=== PATIENT | female | born 1985 | race Two or more races ===

== ENCOUNTER 2016-11-01 19:11 | Emergency (ER) | payer SELFPAY ==
[~2016-11-01] VITALS: Ht 157.5 cm; Wt 49.9 kg
[~2016-11-01 19:11] MED LIST: CIPR500T94 PO; HYDR1TAB10 PO; ONDA4TAB10 SL; PANT40TA3 PO; PROM25TA10 PO
--- NOTE | 2016-11-01 19:27 | PHYS DOC ---
Past Medical History Past Medical History: Depression Past Surgical History: Cholecystectomy Alcohol Use: Sober Drug Use: Marijuana Adult General Chief Complaint Chief Complaint: COUGH HPI HPI Patient is a 31 year old female who presents with fever, body aches, chills, and a cough that began 3 days ago. Review of Systems Review of Systems Constitutional: Body aches and fever Eyes: Denies change in visual acuity, redness, or eye pain [] HENT: Denies nasal congestion or sore throat [] Respiratory: cough Cardiovascular: No additional information not addressed in HPI [] GI: Denies abdominal pain, nausea, vomiting, bloody stools or diarrhea [] : Denies dysuria or hematuria [] Musculoskeletal: Denies back pain or joint pain [] Integument: Denies rash or skin lesions [] Neurologic: Denies headache, focal weakness or sensory changes [] Endocrine: Denies polyuria or polydipsia [] Current Medications Current Medications Current Medications Medications (Trade) Dose Ordered Sig/Amriposa Start Time Stop Time Status Last Admin Dose Admin Acetaminophen (Tylenol) 1,000 mg 1X ONCE 11/01/16 19:45 11/01/16 19:46 DC 11/01/16 19:39 1,000 MG Ibuprofen 800 mg 800 mg 1X ONCE 11/01/16 19:45 11/01/16 19:46 DC 11/01/16 19:39 800 MG Sodium Chloride (Iv Sodium Chloride 0.9% 1000ml Bag) 1,000 ml @ 1,000 mls/hr 1X ONCE 11/01/16 21:00 11/01/16 21:59 DC 11/01/16 20:46 1,000 MLS/HR Allergies Allergies Allergies Coded Allergies Type Severity Reaction Last Updated Verified No Known Drug Allergies 02/26/16 No Physical Exam Physical Exam Constitutional: Well developed, well nourished, no acute distress, non-toxic appearance. [] HENT: Normocephalic, atraumatic, bilateral external ears normal, oropharynx moist, no oral exudates, nose normal. [] Eyes: PERRLA, EOMI, conjunctiva normal, no discharge. [] Neck: Normal range of motion, no tenderness, supple, no stridor. [] Cardiovascular:Heart rate regular rhythm, no murmur [] Lungs & Thorax: Bilateral breath sounds clear to auscultation [] Abdomen: Bowel sounds normal, soft, no tenderness, no masses, no pulsatile masses. [] Skin: Warm, dry, no erythema, no rash. [] Back: No tenderness, no CVA tenderness. [] Extremities: No tenderness, no cyanosis, no clubbing, ROM intact, no edema. [] Neurologic: Alert and oriented X 3, normal motor function, normal sensory function, no focal deficits noted. [] Psychologic: Affect normal, judgement normal, mood normal. [] Current Patient Data Vital Signs Vital Signs Date Time Temp Pulse Resp B/P Pulse Ox O2 Delivery O2 Flow Rate FiO2 11/01/16 22:19 99.5 105 16 95/50 99 Room Air 99.5 Lab Values Laboratory Tests Test 11/01/16 19:23 11/01/16 19:32 11/01/16 19:47 11/01/16 19:57 Influenza Type A Antigen Negative (NEGATIVE) Influenza Type B Antigen Positive (NEGATIVE) Urine Collection Type Unknown Urine Color Yellow Urine Clarity Clear Urine pH 5.5 Urine Specific [place] 1.015 Urine Protein Negativemg/dL (NEG-TRACE) Urine Glucose (UA) Negativemg/dL (NEG) Urine Ketones (Stick) >=80mg/dL (NEG) Urine Blood Moderate (NEG) Urine Nitrite Negative (NEG) Urine Bilirubin Negative (NEG) Urine Urobilinogen Dipstick 1.0mg/dL (0.2 mg/dL) Urine Leukocyte Esterase Negative (NEG) Urine RBC Rare/HPF (0-2) Urine WBC 11-20/HPF (0-4) Urine Squamous Epithelial Cells Mod/LPF Urine Amorphous Sediment /HPF Urine Bacteria Few/HPF (0-FEW) Urine Mucus Mod/LPF Urine Sperm Present/HPF White Blood Count 4.2x10^3/uL (4.0-11.0) Red Blood Count 4.11x10^6/uL (3.50-5.40) Hemoglobin 13.2g/dL (12.0-15.5) Hematocrit 39.0% (36.0-47.0) Mean Corpuscular Volume 95fL (79-100) Mean Corpuscular Hemoglobin 32pg (25-35) Mean Corpuscular Hemoglobin Concent 34g/dL (31-37) Red Cell Distribution Width 13.4% (11.5-14.5) Platelet Count 121x10^3/uL (140-400) L Neutrophils (%) (Auto) 91% (31-73) H Lymphocytes (%) (Auto) 7% (24-48) L Monocytes (%) (Auto) 1% (0-9) Eosinophils (%) (Auto) 0% (0-3) Basophils (%) (Auto) 0% (0-3) Neutrophils # (Auto) 3.8x10^3uL (1.8-7.7) Lymphocytes # (Auto) 0.3x10^3/uL (1.0-4.8) L Monocytes # (Auto) 0.0x10^3/uL (0.0-1.1) Eosinophils # (Auto) 0.0x10^3/uL (0.0-0.7) Basophils # (Auto) 0.0x10^3/uL (0.0-0.2) Segmented Neutrophils % 73% (35-66) H Band Neutrophils % 19% (0-9) H Lymphocytes % 8% (24-48) L Platelet Estimate Adequate (ADEQUATE) POC Urine HCG, Qualitative Hcg negative (Negative) Laboratory Tests 11/01/16 19:47 EKG EKG [] Radiology/Procedures Radiology/Procedures [] Course & Med Decision Making Course & Med Decision Making Pertinent Labs and Imaging studies reviewed. (See chart for details) Patient is in the ED with symptoms of viral illness including body aches fevers and chills. Temperature was 102.9 on arrival with a heart rate in the 140s. Patient was shivering. She was put in a room, she was given Tylenol and Motrin and a liter of IV started right away. Heart rate is 107 right now with temp of 99.5 Patient is positive for influenza B, negative for influenza A, symptoms have been going on for 3 days. Tamiflu has no benefit. Chest x-ray interpreted by Dr. Sanz is negative for any acute findings. Patient was discharged with instructions to push fluids, maintain good hand hygiene. Tylenol every 4 hours Motrin every 6 hours and follow-up with primary care doctor next week. She was provided return precautions and discharged in stable condition. Dragon Disclaimer Dragon Disclaimer This electronic medical record was generated, in whole or in part, using a voice recognition dictation system. Departure Departure Impression: Primary Impression: URI (upper respiratory infection) Additional Impressions: Influenza B Tachycardia Fever Cough Disposition: HOME, SELF-CARE Condition: STABLE Referrals: UNKNOWN PCP NAME (PCP) Follow-up with your doctor next week Patient Instructions: Cough, Adult, [id number], Fever, Upper Respiratory Infection, Adult Additional Instructions: You were seen for influenza B. He also have a fever and cough. Your symptoms are viral. Push fluids, maintain good hand hygiene, take Tylenol every 4 hours and Motrin every 6 hours. Follow-up with your doctor next week, come back to the ED for any worsening symptoms. Problem Qualifiers Primary Impression: URI (upper respiratory infection) URI type: unspecified viral URI Qualified Code: J06.9 - Acute upper respiratory infection, unspecified Additional Impressions: Fever Fever type: unspecified Qualified Code: R50.9 - Fever, unspecified ALEXA MARTINES APRN Nov 01, 2016 19:27
[2016-11-01] MEDS ORDERED: IV NORMAL SALINE 1000ML BAG 1,000 ML IV ONE ×2 (19:30→21:00)
[2016-11-01] MEDS ORDERED: ACETAMINOPHEN 500 MG TABLET PO ONE (19:45)
[2016-11-01] MEDS ORDERED: IBUPROFEN 800 MG TABLET. PO ONE (19:45)
[2016-11-01 19:55] LABS: OBC FLU VALID
[2016-11-01 20:08] LABS: BILIRUBIN,URINE NEGATIVE (NEG); GLUCOSE,URINE NEGATIVE (NEG); NITRITE,URINE NEGATIVE (NEG); PH,URINE 5.5; PROTEIN,URINE NEGATIVE (NEG-TRACE)
[2016-11-01 20:21] LABS: BACTERIA,URINE FEW /HPF (0-FEW); RBC,URINE RARE /HPF (0-2)
[2016-11-01 20:22] LABS: SPERM,URINE PRESENT /HPF; SQUAMOUS EPITHELIAL CELL,UR MOD /LPF
[2016-11-01 21:00] LABS: BASO % 0 % (0-3); EOS % 0 % (0-3); HEMOGLOBIN 13.2 g/dL (12.0-15.5); LYMPH # 0.3 x10^3/uL (1.0-4.8); LYMPH % 7 % (24-48); MEAN CORPUSCULAR HEMOGLOBIN 32 pg (25-35); MEAN CORPUSCULAR HGB CONC 34 g/dL (31-37); MEAN CORPUSCULAR VOLUME 95 fL (79-100); MONO % 1 % (0-9); NEUT % 91 % (31-73); PLATELET COUNT 121 x10^3/uL (140-400); RED BLOOD COUNT 4.11 x10^6/uL (3.50-5.40); RED CELL DISTRIBUTION WIDTH 13.4 % (11.5-14.5); WHITE BLOOD COUNT 4.2 x10^3/uL (4.0-11.0)
[2016-11-01 21:04] LABS: PLT ESTIMATE ADEQUATE (ADEQUATE)
[2016-11-01 22:19] VITALS: BP 95/50
--- NOTE | 2016-11-02 10:17 | RAD ---
EXAM: Chest 2 views. HISTORY: Chest pain, cough and fever. COMPARISON: None. FINDINGS: Frontal and lateral views of the chest are obtained. There are no confluent infiltrates. There is a calcified granuloma on the left. The right costophrenic angle is partially excluded, but there is no pneumothorax or pleural effusion. The heart is not enlarged. IMPRESSION: 1. No confluent infiltrates.
[2016-11-02 11:21] LABS: NEGATIVE OBC STREP NEG; POSITIVE OBC STREP POS
== END 2016-11-01 22:20 | disposition home or self-care (01) ==
LOC: ER 19:11
DX: J10.1 Influenza due to other identified influenza virus with other respiratory manifestations (principal); J06.9 Acute upper respiratory infection, unspecified; F12.10 Cannabis abuse, uncomplicated
CPT/HCPCS: 36415; 71020; 81001; 81025; 85007; 85027; 87070; 87804; 87880; 96360; 96361; 99285; J7030

== ENCOUNTER 2017-10-22 17:45 | Emergency (ER) | payer SELFPAY ==
[2017-10-22] MEDS ORDERED: 0.9 % SODIUM CHLORIDE 10 ML DISP.SYRIN. IV (18:15)
[2017-10-22 18:19] LABS: BILIRUBIN,URINE NEGATIVE (NEG); CLARITY,URINE CLEAR; COLOR,URINE YELLOW; GLUCOSE,URINE NEGATIVE (NEG); NITRITE,URINE NEGATIVE (NEG); PH,URINE 6.5; PROTEIN,URINE NEGATIVE (NEG-TRACE); UROBILINOGEN,URINE 0.2 mg/dL (0.2 mg/dL)
[2017-10-22 18:19] LABS: URINE HCG POC HCG NEGATIVE (Negative)
[2017-10-22] MEDS: ACETAMINOPHEN 325 MG TABLET. PO (18:20)
[2017-10-22] MEDS: KETOROLAC 30 MG/ML INJ. IV (18:21)
[2017-10-22] MEDS: ONDANSETRON PF 4 MG/2 ML VIAL. IV (18:21)
[2017-10-22] MEDS: IV NORMAL SALINE 1000ML BAG 1,000 ML IV (18:22)
[2017-10-22 18:23] LABS: ADD MAN DIFF? NO
[2017-10-22 18:25] LABS: BASO % 1 % (0-3); EOS # 0.2 x10^3/uL (0.0-0.7); EOS % 3 % (0-3); HEMATOCRIT 36.9 % (36.0-47.0); HEMOGLOBIN 12.6 g/dL (12.0-15.5); LYMPH # 1.6 x10^3/uL (1.0-4.8); LYMPH % 31 % (24-48); MEAN CORPUSCULAR HEMOGLOBIN 33 pg (25-35); MEAN CORPUSCULAR HGB CONC 34 g/dL (31-37); MEAN CORPUSCULAR VOLUME 96 fL (79-100); MONO # 0.3 x10^3/uL (0.0-1.1); MONO % 5 % (0-9); NEUT # 3.1 x10^3uL (1.8-7.7); NEUT % 60 % (31-73); PLATELET COUNT 163 x10^3/uL (140-400); RED BLOOD COUNT 3.86 x10^6/uL (3.50-5.40); RED CELL DISTRIBUTION WIDTH 11.9 % (11.5-14.5); WHITE BLOOD COUNT 5.2 x10^3/uL (4.0-11.0)
[2017-10-22 18:33] LABS: RBC,URINE RARE /HPF (0-2)
[2017-10-22 18:34] LABS: BACTERIA,URINE MANY /HPF (0-FEW); SQUAMOUS EPITHELIAL CELL,UR MANY /LPF
[2017-10-22 18:39] LABS: ANION GAP 8 (6-14); BLOOD UREA NITROGEN 21 mg/dL (7-20); CALCIUM 8.7 mg/dL (8.5-10.1); CARBON DIOXIDE 27 mmol/L (21-32); CHLORIDE 105 mmol/L (98-107); CREATININE 0.7 mg/dL (0.6-1.0); GFR 98.3; GLUCOSE 102 mg/dL (70-99); SODIUM 140 mmol/L (136-145)
[2017-10-22 18:42] LABS: ALBUMIN 4.1 g/dL (3.4-5.0); ALK PHOS 61 U/L (46-116); ALT (SGPT) 15 U/L (14-59); AST (SGOT) 8 U/L (15-37); DIRECT BILIRUBIN 0.1 mg/dL (0.0-0.2); TOTAL BILIRUBIN 0.2 mg/dL (0.2-1.0); TOTAL PROTEIN 7.8 g/dL (6.4-8.2)
[2017-10-22 18:45] LABS: TROPONINI < 0.017 ng/mL (0.000-0.055)
[2017-10-22 18:49] LABS: THYROID STIM HORMONE (TSH) 0.937 uIU/mL (0.358-3.74)
[2017-10-22 18:53] LABS: NT-PRO BNP 18 pg/mL (0-124)
[2017-10-22 18:53] LABS: CKMB MASS < 0.5 ng/mL (0.0-3.6); CREATINE KINASE 67 U/L (26-192)
== END 2017-10-22 19:29 | disposition home or self-care (01) ==
LOC: ER 17:45
DX: R42 Dizziness and giddiness (principal); G44.209 Tension-type headache, unspecified, not intractable; R11.0 Nausea; F32.9 Major depressive disorder, single episode, unspecified; F17.210 Nicotine dependence, cigarettes, uncomplicated; F12.10 Cannabis abuse, uncomplicated; Z90.49 Acquired absence of other specified parts of digestive tract
CPT/HCPCS: 36415; 70450; 71046; 80048; 80076; 81001; 81025; 82553; 83735; 83880; 84443; 84484; 85025; 87086; 93005; 96361; 96374; 96375; 99285-25; J1885; J2405; J7030

== ENCOUNTER 2019-12-16 12:11 | Emergency (ER) | payer BC ==
[~2019-12-16] VITALS: Ht 157.5 cm; Wt 45.0 kg
[~2019-12-16 12:11] MED LIST changes: +MECL-75 PO; +METR-34 PO; +NAPR-683 PO; +ONDA4TAB7 PO; -PANT40TA3 PO; +PANT40TA77 PO
[2019-12-16 12:24] VITALS: BP 121/55
--- NOTE | 2019-12-16 12:27 | PHYS DOC ---
Past Medical History Past Medical History: No Pertinent History Past Surgical History: Cholecystectomy Smoking Status: Current Every Day Smoker Alcohol Use: None Drug Use: None General Adult EDM: Chief Complaint: SORE THROAT HPI: HPI: Patient is a 34 year old female who presents with nasal congestion and throat tightness that makes her feel like she has a hard time swallowing or feel short of breath. This is been going on for the last 2 weeks. She states that in the last week it is gotten a bit worse. She states on Thursday she went to urgent care and they gave her ciprofloxacin for a UTI because she was having burning with urination. She states that he did not test her urine. She denies fevers, nausea, vomiting, abdominal pain, problems eating or drinking, headache, dizziness, visual changes, numbness or tingling, chest pain. She denies any pain. She has a smoker. She states she has no medical history. Review of Systems: Review of Systems: HENT: nasal congestion or sore tightness. [] Respiratory: Denies cough. + shortness of breath. [] Heart Score: Risk Factors: Risk Factors: DM, Current or recent (<one month) smoker, HTN, HLP, family history of CAD, obesity. Risk Scores: Score 0 - 3: 2.5% MACE over next 6 weeks - Discharge Home Score 4 - 6: 20.3% MACE over next 6 weeks - Admit for Clinical Observation Score 7 - 10: 72.7% MACE over next 6 weeks - Early Invasive Strategies Allergies: Allergies: Allergies Coded Allergies Type Severity Reaction Last Updated Verified No Known Drug Allergies 02/26/16 No Physical Exam: PE: Constitutional: Well developed, well nourished, no acute distress, non-toxic appearance. [] HENT: Normocephalic, atraumatic, bilateral external ears normal, oropharynx moist, no oral exudates, nose normal. [] Eyes: PERRLA, EOMI, conjunctiva normal, no discharge. [] Neck: Normal range of motion, no tenderness, supple, no stridor. [] Cardiovascular:Heart rate regular rhythm, no murmur [] Lungs & Thorax: Bilateral breath sounds clear to auscultation [] Abdomen: Bowel sounds normal, soft, no tenderness, no masses, no pulsatile masses. [] Skin: Warm, dry, no erythema, no rash. [] Back: No tenderness, no CVA tenderness. [] Extremities: No tenderness, no cyanosis, no clubbing, ROM intact, no edema. [] Neurologic: Alert and oriented X 3, normal motor function, normal sensory function, no focal deficits noted. [] Psychologic: Affect normal, judgement normal, mood normal. [] Normal Physical Exam EKG: EKG: [] Radiology/Procedures: Radiology/Procedures: [] Impression: [facility] [address] [place] [address] IMAGING REPORT Signed PATIENT: NOEMY REYNA ACCOUNT: [id number] : 1985 LOCATION: ER AGE: 34 SEX: F EXAM STATUS: PRE ER ORD. PHYSICIAN: CATARINA BHATIA APRN REASON: soa PROCEDURE: CHEST PA & LATERAL CHEST PA LATERAL INDICATION: Dyspnea. COMPARISON STUDY: 10/22/2017. FINDINGS: Lungs: Normal lung volume. No pulmonary mass or consolidation. Calcified pulmonary granuloma. The tracheobronchial tree and hilar structures are normal. Pleura: No pleural effusion or pneumothorax. Heart and Mediastinum: The cardiomediastinal silhouette is normal. The great vessels of the thorax are normal. Bones and Soft Tissues: The bones and soft tissues are within normal limits. IMPRESSION: No acute cardiopulmonary process. Electronically signed by: Matthew Vela MD (12/16/2019 12:49 PM) [id number] DICTATED and SIGNED BY: MATTHEW VELA MD DATE: 12/16/19 1249 Course & Med Decision Making: Course & Med Decision Making Pertinent Labs and Imaging studies reviewed. (See chart for details) Alert and oriented. Speaks in full clear sentences. Ambulatory with steady gait. Skin pink warm and dry. Vital signs are within normal limits. Lungs are clear to auscultation all lobes. Throat is pink without exudates or any kind of swelling. Uvula midline and no swelling. Patient is swallowing her saliva. She states she is eating and drinking appropriately. Patient needs to continue taking her ciprofloxacin as prescribed because she does have a urinary tract infection with nitrites positive. Since off her symptoms started before she even started the medication I do not think she is having reaction to the medication and there is no swelling or hives or rash to indicate she is even having allergic reaction. Patient states that she has been very stressed and anxious and smoking more than usual. I think patient does have some anxiety. She may also have some asthma because of her smoking that has been exacerbated by increased smoking. Patient's chest x-ray shows no acute findings. I will give her a albuterol treatment and dexamethasone in the ED. I will send her home with an inhaler and some Vistaril. Patient needs to stop smoking and follow-up with her primary care provider. [] Jean Disclaimer: Dragsevero Disclaimer: This electronic medical record was generated, in whole or in part, using a voice recognition dictation system. Departure Departure Impression: Primary Impression: Shortness of breath Additional Impressions: Anxiety UTI (urinary tract infection) Qualified Codes: N39.0 - Urinary tract infection, site not specified Disposition: HOME, SELF-CARE Condition: STABLE Referrals: NO PCP (PCP) Patient Instructions: Anxiety and Panic Attacks, [id number], Asthma, Adult, Smoking Cessation Additional Instructions: Follow up with primary care provider. Use medication as prescribed. Stop smoking. Continue taking the Ciprofloxacin for your UTI. Scripts Hydroxyzine Pamoate (VISTARIL) 50 Mg Capsule 1 CAP PO BID PRN for ANXIETY / AGITATION, #14 CAP 0 Refills Prov: CATARINA BHATIA APRN 12/16/19 Albuterol Sulfate (PROAIR HFA INHALER) 8.5 Gm Hfa.aer.ad 1 PUFF INH PRN Q6HRS PRN for SHORTNESS OF BREATH, #1 INHALER 0 Refills Prov: CATARINA BHATIA APRN 12/16/19 CATARINA BHATIA APRN Dec 16, 2019 12:27
[2019-12-16] MEDS: diphenhydrAMINE HCL 25 MG CAPSULE PO ONE (12:39)
[2019-12-16 12:48] LABS: BILIRUBIN,URINE NEGATIVE (NEG); CLARITY,URINE CLEAR; NITRITE,URINE POSITIVE (NEG); PROTEIN,URINE NEGATIVE (NEG-TRACE); UROBILINOGEN,URINE 0.2 mg/dL (0.2 mg/dL)
[2019-12-16 12:49] LABS: COLOR,URINE YELLOW
[2019-12-16 12:51] LABS: SQUAMOUS EPITHELIAL CELL,UR MOD /LPF
[2019-12-16 12:52] LABS: BACTERIA,URINE FEW /HPF (0-FEW); RBC,URINE 0 /HPF (0-2)
--- NOTE | 2019-12-16 12:52 | RAD ---
CHEST PA LATERAL INDICATION: Dyspnea. COMPARISON STUDY: 10/22/2017. FINDINGS: Lungs: Normal lung volume. No pulmonary mass or consolidation. Calcified pulmonary granuloma. The tracheobronchial tree and hilar structures are normal. Pleura: No pleural effusion or pneumothorax. Heart and Mediastinum: The cardiomediastinal silhouette is normal. The great vessels of the thorax are normal. Bones and Soft Tissues: The bones and soft tissues are within normal limits. IMPRESSION: No acute cardiopulmonary process. Electronically signed by: Ray Contreras MD (12/16/2019 12:49 PM) [id number]
[2019-12-16] MEDS ORDERED: ALBU2.5V8 INH (13:06)
[2019-12-16] MEDS ORDERED: HYDR50CA PO (13:06)
[2019-12-16] MEDS: ALBUTEROL SULFATE 2.5 MG/3 ML NEBU. NEB ONE (13:16)
[2019-12-16] MEDS: DEXAMETHASONE 4 MG TABLET PO SCH (13:19)
== END 2019-12-16 14:11 | disposition home or self-care (01) ==
LOC: ER 12:11
DX: R06.02 Shortness of breath (principal); N39.0 Urinary tract infection, site not specified; F17.200 Nicotine dependence, unspecified, uncomplicated; Z90.49 Acquired absence of other specified parts of digestive tract
CPT/HCPCS: 71046; 81001; 81025; 87086; 99284; J8540; J7613; Q0163

== ENCOUNTER 2020-07-08 09:48 | Emergency (ER) | payer SELFPAY ==
[~2020-07-08] VITALS: Ht 157.5 cm; Wt 48.0 kg
[~2020-07-08 09:48] MED LIST changes: +ALBU2.5V8 INH; +HYDR50CA PO
[2020-07-08] MEDS ORDERED: IV NORMAL SALINE 1000ML BAG 1,000 ML IV SCH (10:14)
--- NOTE | 2020-07-08 10:19 | PHYS DOC ---
Past Medical History Past Medical History: Anxiety Past Surgical History: Cholecystectomy Smoking Status: Current Every Day Smoker Alcohol Use: Occasionally Drug Use: None General Adult EDM: Chief Complaint: ABDOMINAL PAIN HPI: HPI: Patient is a 35 year old female who presented to ER today for evaluation of left lower abdominal pain started this morning. Patient denies any fever, no nausea vomiting, no diarrhea, no urinary frequency or urgency. Patient denies any pelvic pain, no vaginal discharge., No vaginal bleeding. Patient described the pain as sharp stabbing in nature. Review of Systems: Review of Systems: Constitutional: Denies fever or chills. [] Eyes: Denies change in visual acuity. [] HENT: Denies nasal congestion or sore throat. [] Respiratory: Denies cough or shortness of breath. [] Cardiovascular: Denies chest pain or edema. [] GI: Positive for left lower abdominal pain, no nausea vomiting, no diarrhea. : Denies dysuria. [] Musculoskeletal: Denies back pain or joint pain. [] Integument: Denies rash. [] Neurologic: Denies headache, focal weakness or sensory changes. [] Endocrine: Denies polyuria or polydipsia. [] Lymphatic: Denies swollen glands. [] Psychiatric: Denies depression or anxiety. [] Heart Score: Risk Factors: Risk Factors: DM, Current or recent (<one month) smoker, HTN, HLP, family history of CAD, obesity. Risk Scores: Score 0 - 3: 2.5% MACE over next 6 weeks - Discharge Home Score 4 - 6: 20.3% MACE over next 6 weeks - Admit for Clinical Observation Score 7 - 10: 72.7% MACE over next 6 weeks - Early Invasive Strategies Current Medications: Current Medications Medications (Trade) Dose Ordered Sig/Mariposa Start Time Stop Time Status Last Admin Dose Admin Sodium Chloride 1,000 ml @ 1,000 mls/hr Q1H 07/08/20 10:14 07/08/20 11:13 UNV Allergies: Allergies: Allergies Coded Allergies Type Severity Reaction Last Updated Verified No Known Drug Allergies 02/26/16 No Physical Exam: PE: Constitutional: Well developed, well nourished, no acute distress, non-toxic appearance. [] HENT: Normocephalic, atraumatic, bilateral external ears normal, oropharynx moist, no oral exudates, nose normal. [] Eyes: PERRLA, EOMI, conjunctiva normal, no discharge. [] Neck: Normal range of motion, no tenderness, supple, no stridor. [] Cardiovascular:Heart rate regular rhythm, no murmur [] Lungs & Thorax: Bilateral breath sounds clear to auscultation [] Abdomen: Bowel sounds normal, soft, There is tenderness in LLQ, no masses, no pulsatile masses. [] Skin: Warm, dry, no erythema, no rash. [] Back: No tenderness, no CVA tenderness. [] Extremities: No tenderness, no cyanosis, no clubbing, ROM intact, no edema. [] Neurologic: Alert and oriented X 3, normal motor function, normal sensory function, no focal deficits noted. [] Psychologic: Affect normal, judgement normal, mood normal. [] Current Patient Data: Labs: Laboratory Tests Test 07/08/20 10:10 07/08/20 10:12 07/08/20 10:15 Urine Collection Type Unknown Urine Color Yellow Urine Clarity Clear Urine pH 6.0 Urine Specific [place] 1.025 Urine Protein Negative mg/dL Urine Glucose (UA) Negative mg/dL Urine Ketones (Stick) Negative mg/dL Urine Blood Negative Urine Nitrite Negative Urine Bilirubin Negative Urine Urobilinogen Dipstick 0.2 mg/dL Urine Leukocyte Esterase Negative Urine RBC 0 /HPF Urine WBC 1-4 /HPF Urine Squamous Epithelial Cells Mod /LPF Urine Bacteria Few /HPF Urine Mucus Mod /LPF Bedside Urine HCG, Qualitative Hcg negative White Blood Count 5.3 x10^3/uL Red Blood Count 4.41 x10^6/uL Hemoglobin 13.9 g/dL Hematocrit 41.4 % Mean Corpuscular Volume 94 fL Mean Corpuscular Hemoglobin 32 pg Mean Corpuscular Hemoglobin Concent 34 g/dL Red Cell Distribution Width 12.1 % Platelet Count 137 x10^3/uL Neutrophils (%) (Auto) 61 % Lymphocytes (%) (Auto) 30 % Monocytes (%) (Auto) 5 % Eosinophils (%) (Auto) 3 % Basophils (%) (Auto) 0 % Neutrophils # (Auto) 3.3 x10^3/uL Lymphocytes # (Auto) 1.6 x10^3/uL Monocytes # (Auto) 0.3 x10^3/uL Eosinophils # (Auto) 0.1 x10^3/uL Basophils # (Auto) 0.0 x10^3/uL Sodium Level 142 mmol/L Potassium Level 3.5 mmol/L Chloride Level 103 mmol/L Carbon Dioxide Level 24 mmol/L Anion Gap 15 Blood Urea Nitrogen 12 mg/dL Creatinine 0.8 mg/dL Estimated GFR (Cockcroft-Gault) 82.6 BUN/Creatinine Ratio 15 Glucose Level 109 mg/dL Calcium Level 9.1 mg/dL Total Bilirubin 0.2 mg/dL Aspartate Amino Transf (AST/SGOT) 13 U/L Alanine Aminotransferase (ALT/SGPT) 24 U/L Alkaline Phosphatase 66 U/L Total Protein 7.8 g/dL Albumin 4.3 g/dL Albumin/Globulin Ratio 1.2 Lipase 125 U/L Current Medications Medications (Trade) Dose Ordered Sig/Mariposa Route PRN Reason Start Time Stop Time Status Last Admin Dose Admin Sodium Chloride 1,000 ml @ 1,000 mls/hr Q1H IV 07/08/20 10:14 07/08/20 11:13 DC 07/08/20 10:23 Iohexol (Omnipaque 300 Mg/ml) 75 ml 1X ONCE IV 07/08/20 11:15 07/08/20 11:16 DC 07/08/20 11:22 Info (CONTRAST GIVEN -- Rx MONITORING) 1 each PRN DAILY PRN MC SEE COMMENTS 07/08/20 11:15 07/10/20 11:14 EKG: EKG: [] Radiology/Procedures: Radiology/Procedures: [][facility] [address] [place], [place] [id number] IMAGING REPORT Signed PATIENT: NOEMY REYNA ACCOUNT: [id number] : 1985 LOCATION: ER AGE: 35 SEX: F EXAM STATUS: PRE ER ORD. PHYSICIAN: CRISSY MACIAS DO REASON: LLQ ABDOMINAL PAIN PROCEDURE: CT ABD PELV W/ IV CONTRST ONLY Examination: CT ABD PELV W/ IV CONTRST ONLY History: Reason: LLQ ABDOMINAL PAIN / Spl. Instructions: IV OMNI 300 75 MLS / History: Comparison/Correlation: None Findings: Axial images of the abdomen and pelvis were obtained following IV contrast. Sagittal and coronal reformatted images were provided. Visualized lung bases are cholecystectomy noted. Liver, spleen, pancreas, and adrenal glands are normal. Kidneys are unremarkable. No bowel obstruction. Appendix is normal. Moderate quantity of stool is present in the colon. Small amount of pelvic free fluid is present. Adnexal follicles are suggested and physiologic in appearance. Prominent bilateral lower pelvic vasculature about the adnexal regions noted. Urinary bladder is unremarkable. Circumferential thickening of the sigmoid colon which probably represents contraction or spasm present. No definite surrounding inflammation. Sacralization of L5 noted. Impression: Prominent bilateral lower pelvic vascularity which raises question of pelvic congestion syndrome. Pelvic free fluid is present and is presumably physiologic. PQRS Compliance Statement: One or more of the following individualized dose reduction techniques were utilized for this examination: 1. Automated exposure control 2. Adjustment of the mA and/or kV according to patient size 3. Use of iterative reconstruction technique Electronically signed by: Davin Jaimes MD (07/08/2020 11:40 AM) [id number] DICTATED and SIGNED BY: DAVIN JAIMES MD DATE: 07/08/20 114 Course & Med Decision Making: Course & Med Decision Making Pertinent Labs and Imaging studies reviewed. (See chart for details) Patient is a 34-year-old female who presented to ER with abdominal pain, CT scan of the abdomen pelvic did not show any obvious acute problem. Her lab work was normal as well. Patient pain was controlled. We will discharge her home, she will need to follow-up with her family physician for outpatient evaluation and treatment. Enmaon Disclaimer: Dragsevero Disclaimer: This electronic medical record was generated, in whole or in part, using a voice recognition dictation system. Departure Departure Impression: Primary Impression: Abdominal pain Disposition: 01 DC HOME SELF CARE/HOMELESS Condition: IMPROVED Referrals: NO PCP (PCP) follow up with your doctor as needed next week Patient Instructions: Abdominal Pain Additional Instructions: Thank you for visiting our Emergency Department. We appreciate you trusting us with your care. If any additional problems come up don't hesitate to return to visit us. Please follow up with your primary care provider so they can plan additional care if needed and know about the problem that you had. If symptoms worsen come back to the Emergency Department. Any concerning symptoms that start such as chest pain, shortness of air, weakness or numbness on one side of the body, running high fevers or any other concerning symptoms return to the ER. CRISSY MACIAS DO Jul 08, 2020 10:19
[2020-07-08 10:33] LABS: BASO % 0 % (0-3); EOS # 0.1 x10^3/uL (0.0-0.7); EOS % 3 % (0-3); HEMATOCRIT 41.4 % (36.0-47.0); HEMOGLOBIN 13.9 g/dL (12.0-15.5); LYMPH # 1.6 x10^3/uL (1.0-4.8); LYMPH % 30 % (24-48); MEAN CORPUSCULAR HEMOGLOBIN 32 pg (25-35); MEAN CORPUSCULAR HGB CONC 34 g/dL (31-37); MEAN CORPUSCULAR VOLUME 94 fL (79-100); MONO # 0.3 x10^3/uL (0.0-1.1); MONO % 5 % (0-9); NEUT # 3.3 x10^3/uL (1.8-7.7); NEUT % 61 % (31-73); PLATELET COUNT 137 x10^3/uL (140-400); RED BLOOD COUNT 4.41 x10^6/uL (3.50-5.40); RED CELL DISTRIBUTION WIDTH 12.1 % (11.5-14.5); WHITE BLOOD COUNT 5.3 x10^3/uL (4.0-11.0)
[2020-07-08 10:36] LABS: BILIRUBIN,URINE NEGATIVE (NEG); CLARITY,URINE CLEAR; COLOR,URINE YELLOW; NITRITE,URINE NEGATIVE (NEG); PROTEIN,URINE NEGATIVE (NEG-TRACE); UROBILINOGEN,URINE 0.2 mg/dL (0.2 mg/dL)
[2020-07-08 10:43] LABS: CALCIUM 9.1 mg/dL (8.5-10.1); CREATININE 0.8 mg/dL (0.6-1.0); GFR 82.6; POTASSIUM 3.5 mmol/L (3.5-5.1)
[2020-07-08 10:49] LABS: ALBUMIN 4.3 g/dL (3.4-5.0); ALBUMIN/GLOBULIN RATIO 1.2 (1.0-1.7); TOTAL BILIRUBIN 0.2 mg/dL (0.2-1.0); TOTAL PROTEIN 7.8 g/dL (6.4-8.2)
[2020-07-08 10:52] LABS: BACTERIA,URINE FEW /HPF (0-FEW); RBC,URINE 0 /HPF (0-2)
[2020-07-08] MEDS ORDERED: IOHEXOL 300 MG/ML 100ML VIAL. IV ONE (11:15)
[2020-07-08] MEDS ORDERED: CONTRAST GIVEN. MC PRN (11:15)
--- NOTE | 2020-07-08 11:43 | RAD ---
Examination: CT ABD PELV W/ IV CONTRST ONLY History: Reason: LLQ ABDOMINAL PAIN / Spl. Instructions: IV OMNI 300 75 MLS / History: Comparison/Correlation: None Findings: Axial images of the abdomen and pelvis were obtained following IV contrast. Sagittal and coronal reformatted images were provided. Visualized lung bases are cholecystectomy noted. Liver, spleen, pancreas, and adrenal glands are normal. Kidneys are unremarkable. No bowel obstruction. Appendix is normal. Moderate quantity of stool is present in the colon. Small amount of pelvic free fluid is present. Adnexal follicles are suggested and physiologic in appearance. Prominent bilateral lower pelvic vasculature about the adnexal regions noted. Urinary bladder is unremarkable. Circumferential thickening of the sigmoid colon which probably represents contraction or spasm present. No definite surrounding inflammation. Sacralization of L5 noted. Impression: Prominent bilateral lower pelvic vascularity which raises question of pelvic congestion syndrome. Pelvic free fluid is present and is presumably physiologic. PQRS Compliance Statement: One or more of the following individualized dose reduction techniques were utilized for this examination: 1. Automated exposure control 2. Adjustment of the mA and/or kV according to patient size 3. Use of iterative reconstruction technique Electronically signed by: Davin Jaimes MD (07/08/2020 11:40 AM) [id number]
[2020-07-08 11:56] VITALS: BP 134/56
== END 2020-07-08 12:05 | disposition home or self-care (01) ==
LOC: ER 09:48
DX: R10.32 Left lower quadrant pain (principal); F17.200 Nicotine dependence, unspecified, uncomplicated; Z90.49 Acquired absence of other specified parts of digestive tract
CPT/HCPCS: 36415; 74177; 80053; 81001; 81025; 83690; 85025; 96360; 99285; J7030; Q9967